=== PATIENT | female | born 1975 | race Two or more races ===

== ENCOUNTER 2025-02-09 09:59 | Inpatient (IN) | payer MEDICAID, OTHER ==
[~2025-02-09] VITALS: Ht 165.1 cm; Wt 78.2 kg
--- NOTE | 2025-02-09 10:31 | ED.PDOC ---
History of Present Illness HPI Comments 49-year-old female brought by paramedics because of redness at the Port-A-Cath site for her drug infusion. Placed in the right chest. She does have a history of breast cancer for which she did use the port for intravenous chemotherapy now currently she is waiting to start her oral chemotherapy. She does have generalized weakness other than the redness of her Port-A-Cath. Denies chest pain nausea vomiting. This redness was 1st noticed a few days ago progressively getting worse. History of diabetes and hyper cholesterol. Denies any other symptoms. Time Seen by MD: 10:11 Reviewed Notes: Nurses Notes, Medications, Allergies Allergies: Coded Allergies: NO KNOWN ALLERGIES (Unverified , 02/09/25) Information Source: Patient, Emergency Med Personnel Mode of Arrival: EMS Severity: Moderate Timing: Days Duration: Since onset Past Medical History PAST MEDICAL HISTORY: DM Surgical History: Denies all surgeries WIRE ANNEALER History: No Pertinent WIRE ANNEALER History Social History Smoker: Non-Smoker Alcohol: Denies ETOH Use Drugs: Denies Drug Use Constitutional: reports: weakness; denies: chills, diaphoresis, fatigue, fever, malaise, sweats, others EENTM: denies: blurred vision, double vision, ear bleeding, ear discharge, ear drainage, ear pain, ear ringing, eye pain, eye redness, hearing loss, mouth pain, mouth swelling, nasal discharge, nose bleeding, nose congestion, nose pain, photophobia, tearing, throat pain, throat swelling, voice changes, others Respiratory: denies: cough, hemoptysis, orthopnea, SOB at rest, shortness of breath, SOB with excertion, stridor, wheezing, others Cardiovascular: denies: chest pain, dizzy spells, diaphoresis, Dyspnea on exertion, edema, irregular heart beat, left arm pain, lightheadedness, palpitations, PND, syncope, others Gastrointestinal: denies: abdomen distended, abdominal pain, blood streaked bowels, constipated, diarrhea, dysphagia, difficulty swallowing, hematemesis, melena, nausea, poor appetite, poor fluid intake, rectal bleeding, rectal pain, vomiting, others Genitourinary: denies: abnormal vagina bleeding, burning, dyspareunia, dysuria, flank pain, frequency, hematuria, incontinence, pain, , vagina discharge, urgency, others Neurological: denies: dizziness, fainting, headache, left sided numbness, left sided weakness, numbness, paresthesia, pre-existing deficit, right sided numbness, right sided weakness, seizure, speech problems, tingling, tremors, weakness, others Musculoskeletal: denies: back pain, gout, joint pain, joint swelling, muscle pain, muscle stiffness, neck pain, others Integumetry: denies: bruises, change in color, change in hair/nails, dryness, laceration, lesions, lumps, rash, wounds, others Allergic/Immunocompromised: denies: Difficulty Healing, Frequent Infections, Hives, Itching, others Hematologic/Lymphatic: denies: anemia, blood clots, easy bleeding, easy bruising, swollen glands, others Endocrine: denies: excessive hunger, excessive sweating, excessive thirst, excessive urination, flushing, intolerance to cold, intolerance to heat, unexplained weight gain, unexplained weight loss, others Psychiatric: denies: anxiety, bipolar disorder, depression, hopeless, panic disorder, schizophrenia, sleepless, suicidal, others Physical Exam General Appearance: Moderate Distress HEENT: Normal ENT Inspection, Pharynx Normal, TMs Normal Neck: Full Range of Motion, Non-Tender, Normal, Normal Inspection Respiratory: Chest Non-Tender, Lungs Clear, No Accessory Muscle Use, No Respiratory Distress, Normal Breath Sounds Cardiovascular: No Edema, No JVD, No Murmur, No Gallop, Normal Peripheral Pulses, Regular Rate/Rhythm Breast Exam: Deferred Gastrointestinal: No Organomegaly, Non Tender, No Pulsatile Mass, Normal Bowel Sounds, Soft Genitalia: Deferred Pelvic: Deferred Rectal: Deferred Extremities: No calf tenderness, Normal capillary refill, Normal inspection, Normal range of motion, Non-tender, No pedal edema Musculoskeletal : Apperance: Normal Neurologic: Alert, fur blower II-XII nml as Tested, No Motor Deficits, Normal Affect, Normal Mood, No Sensory Deficits Cerebellar Function: NOT DONE Reflexes: NOT DONE Skin: Wounds (Right chest) Peripheral Pulses: 3+ Radial (R), 3+ Radial (L) Lymphatic: No Adenopathy Was a procedure done? Was a procedure done?: No Differential Dx Considerations may include: Cellulitis Electrolyte imbalance X-Ray, Labs, Meds, VS Vital Signs Date Time Temp Pulse Resp B/P (MAP) Pulse Ox O2 Delivery O2 Flow Rate FiO2 02/09/25 11:32 80 18 95 Room Air 02/09/25 11:32 97.7 74 18 120/81 (94) 95 97.7 02/09/25 10:10 98.2 96 16 111/72 (85) 94 98.2 02/09/25 10:08 91 Lab Test 02/09/25 11:00 Range/Units White Blood Count 3.5 L 4.4-10.8 10^3/uL Red Blood Count 3.87 L 4.0-5.20 10^6/uL Hemoglobin 12.9 12.2-16.2 g/dL Hematocrit 37.6 36.0-46.0 % Mean Corpuscular Volume 97.1 80.0-100.0 fL Mean Corpuscular Hemoglobin 33.2 H 28.0-32.0 pg Mean Corpuscular Hemoglobin Concent 34.2 32.0-36.0 g/dL Red Cell Distribution Width 20.9 H 11.8-14.3 % Platelet Count 141 140-450 10^3/uL Mean Platelet Volume 6.7 L 6.9-10.8 fL Neutrophils (%) (Auto) 67.0 37.0-80.0 % Lymphocytes (%) (Auto) 20.8 10.0-50.0 % Monocytes (%) (Auto) 10.9 0.0-12.0 % Eosinophils (%) (Auto) 0.8 0.0-7.0 % Basophils (%) (Auto) 0.5 0.0-2.0 % Neutrophils # (Auto) 2.3 1.6-8.6 10 ^3/uL Lymphocytes # (Auto) 0.7 0.4-5.4 10 ^3/uL Monocytes # (Auto) 0.4 0-1.3 10 ^3/uL Eosinophils # (Auto) 0 0-0.8 10 ^3/uL Basophils # (Auto) 0 0-0.2 10 ^3/uL Nucleated Red Blood Cells 0.1 % Sodium Level 140 136-145 mmol/L Potassium Level 3.4 L 3.5-5.1 mmol/L Chloride Level 103 98-107 mmol/L Carbon Dioxide Level 28 20-31 mmol/L Anion Gap 9 5-15 Blood Urea Nitrogen 14 9-23 mg/dL Creatinine 0.59 0.550-1.02 mg/dL Glomerular Filtration Rate Calc 110 >90 mL/min BUN/Creatinine Ratio 23.7 H 10.0-20.0 Serum Glucose 113 H 74-106 mg/dL Calcium Level 9.9 8.7-10.4 mg/dL Patient alert. Redness of the Port-A-Cath. Vitals stable. Answering questions. Abdomen is soft nontender. Cellulitis of the port area. She does have breast cancer. Establish intravenous access. Was given fluids. Was given Zosyn. Explained to the patient. Continue monitoring. [place] [id number] Ph: [phone] DIAGNOSTIC IMAGING Diagnostic Imaging Report : [id number] Signed PATIENT: YURY GANDHI ACCT: [id number] UNIT: [id number] : 1975 LOC: ER ROOM / BED: / AGE / SEX: 49 / F ADM STATUS: REG ER SERVICE 1023 ORDERING PHYSICIAN: TARIQ JOHNSON MD PROCEDURE(s): CXRP - CHEST PORTABLE REASON: sob ORDER NUMBER(s): [id number], ACCESSION NUMBER(s): [id number] CHEST RADIOGRAPH Indication: sob Technique: Single frontal view of the chest was obtained Comparison: None FINDINGS: The cardiac silhouette is unremarkable. The lungs demonstrate perihilar and left basilar airspace opacities. The pulmonary vasculature is prominent. There is no pleural effusion.. There is no pneumothorax. Postsurgical changes projecting over the left chest/ axillary region. IMPRESSION: 1. As above ATED BY: JENS DOZIER MD DICTATED DATE/TIME: 02/09/25 1115 SIGNED BY: JENS DOZIER MD SIGNED DATE/TIME: 02/09/25 1115 CC: Time of 1ST Reevaluation: 10:29 Reevaluation 1ST: Unchanged Patient Education/Counseling: Diagnosis, Treatment, Prognosis Family Education/Counseling: No Family Present Departure 1 Departure Time of Disposition: 10:30 Impression: Primary Impression: Cellulitis Qualified Codes: L03.90 - Cellulitis, unspecified Disposition: ADMITTED INPATIENT Admit to: Med Surg Condition: Guarded Critical Care Note Critical Care Time?: Yes (90 min-critical care time only) Critical care comment: Cellulitis of the chest possibly will need CT. Stability Stability form required: No Heart Score Heart Score: Heart Score Response (Comments) Value History Slightly Suspicious 0 EKG Normal 0 Age 45-64 1 Risk Factors >3 or Hx ASHD 2 Troponin Normal limit 0 Total 3 I personally scribed for TARIQ JOHNSON MD ([email or web address]) on 02/09/25 at 11:40. Electronically submitted by Eric Contreras ([email or web address]). TARIQ JOHNSON MD Feb 09, 2025 10:31
[2025-02-09 11:13] LABS: Basophils # (auto) 0 10 ^3/uL (0-0.2); Basophils % (auto) 0.5 % (0.0-2.0); Eosinophils # (auto) 0 10 ^3/uL (0-0.8); Eosinophils % (auto) 0.8 % (0.0-7.0); Hematocrit 37.6 % (36.0-46.0); Hemoglobin 12.9 g/dL (12.2-16.2); Lymphocytes # (auto) 0.7 10 ^3/uL (0.4-5.4); Lymphocytes % (auto) 20.8 % (10.0-50.0); Mean Corpuscular Hemoglobin 33.2 pg (28.0-32.0); Mean Corpuscular Hgb Conc. 34.2 g/dL (32.0-36.0); Mean Corpuscular Volume 97.1 fL (80.0-100.0); Monocytes # (auto) 0.4 10 ^3/uL (0-1.3); Monocytes % (auto) 10.9 % (0.0-12.0); Neutrophils # (auto) 2.3 10 ^3/uL (1.6-8.6); Nucleated Red Blood Cells % 0.1 %; Platelet Count (auto) 141 10^3/uL (140-450); Red Blood Cells 3.87 10^6/uL (4.0-5.20); Red Cell Distribution Width 20.9 % (11.8-14.3); White Blood Cell 3.5 10^3/uL (4.4-10.8)
--- NOTE | 2025-02-09 11:17 | DVH ---
CHEST RADIOGRAPH Indication: sob Technique: Single frontal view of the chest was obtained Comparison: None FINDINGS: The cardiac silhouette is unremarkable. The lungs demonstrate perihilar and left basilar airspace opa cities. The pulmonary vasculature is prominent. There is no pleural effusion.. There is no pneumothor ax. Postsurgical changes projecting over the left chest/ axillary region. IMPRESSION: 1. As above
[2025-02-09 11:21] LABS: Chloride 103 mmol/L (98-107); Sodium 140 mmol/L (136-145)
[2025-02-09 11:22] LABS: Anion Gap 9 (5-15); Calcium 9.9 mg/dL (8.7-10.4); Carbon Dioxide 28 mmol/L (20-31); Potassium 3.4 mmol/L (3.5-5.1)
[2025-02-09 11:27] LABS: BUN/Creatinine Ratio 23.7 (10.0-20.0); Blood Urea Nitrogen 14 mg/dL (9-23)
[2025-02-09 11:29] LABS: Glucose 113 mg/dL (74-106)
[2025-02-09 12:00] LABS: Urine Bacteria None Seen /hpf (None Seen)
[2025-02-09 12:06] LABS: Urine Blood Negative /uL (Negative); Urine Clarity Clear (Clear); Urine Color Light-Yellow (Yellow); Urine Protein, UAD Negative (Negative); Urine Specific Gravity 1.021 (1.001-1.035); Urine Squamous Epithelial Cell FEW /hpf (<5); Urine Urobilinogen Normal (Negative); Urine WBC 4 /HPF (0-5); Urine pH 5.5 (5.0-9.0)
[2025-02-09 14:56] VITALS: RESP 20; O2SAT 98
[2025-02-09] MEDS ORDERED: NITROGLYCERIN 0.4 MG SL TAB SL PRN (16:45)
[2025-02-09] MEDS ORDERED: DEXTROSE (50%) 50ML SYRG IV PRN (16:45)
[2025-02-09] MEDS ORDERED: VANCOMYCIN PER PHARMACY 0 MG IV SCH (16:45)
[2025-02-09] MEDS ORDERED: MORPHINE SULFATE INJ 2 MG/ml SYRG IV PRN (16:45)
[2025-02-09] MEDS ORDERED: DOCUSATE SOD 100 MG CAP PO PRN (16:45)
[2025-02-09] MEDS ORDERED: ONDANSETRON HCL 4 MG/2 ML VIAL IV PRN (16:45)
[2025-02-09] MEDS: SODIUM CHLORIDE 0.9% 1,000 ML IV ONE ×2 (17:00→21:37)
[2025-02-09] MEDS: ACCU-CHEK COMFORT CURVE STRIP VI SCH (17:00)
--- NOTE | 2025-02-09 17:11 | DVHHP2 ---
History of Present Illness Reason for Visit: Generalized weakness History of Present Illness Shiva Gil is a 49-year-old female with past medical history of hyperlipidemia, diabetes, and breast cancer S/P left mastectomy, who came in for generalized weakness. Patient states she had her port-a-cath removed on Sunday. Over the weekend the site became red, warm, and painful, and she started feeling tired and weak. Today she states yellow and red fluid started draining from the site prompting her to come to the hospital. Patient states she has completed her IV chemo treatment, but continues to take PO chemo treatment. The port-a-cath site is red, swollen, warm, with drainage. Possible abscess building, will place surgical consult for possible I&D of area. Cardiovascular: hyperipidemia Heme/Onc: Cancer (breast) Endocrine: Diabetes Past Surgical History: Cholecystectomy, Other (Left mastectomy) Smoke: No ALCOHOL: none Drugs: None Lives: Alone (she lives with her 12-year-old child) Domestic Violence: Neg Review of Systems Constitutional: No: Fever, Chills, Sweats, Weakness, Malaise, Other Eyes: No: Pain, Vision change, Conjunctivae inflammation, Eyelid inflammation, Other, Redness ENT: No: Ear pain, Ear discharge, Nose pain, Nose discharge, Nose congestion, Mouth pain, Mouth swelling, Throat pain, Throat swelling, Other Respiratory: No: Cough, Dry, Shortness of breath, SOB with excertion, Wheezing, Hemoptysis, Pleuritic Pain, Sputum, Wheezing, Other Cardiovascular: No: Chest Pain, Palpitations, Orthopnea, Paroxysmal Noc. Dyspnea, Edema, Lt Headedness, Other Gastrointestinal: No: Nausea, Vomiting, Abdominal Pain, Diarrhea, Constipation, Melena, Hematochezia, Other Genitourinary: No Dysuria, No Frequency, No Incontinence, No Hematuria, No Retention, No Other Musculoskeletal: other (right chest pain at site of port-a-cath removal); No: neck pain, shoulder pain, arm pain, back pain, hand pain, leg pain, foot pain Skin: Other (redness, and warmth to right chest port-a-cath removal site); No: Rash, Lesions, Jaundice, Bruising Neurological: No: Weakness, Numbness, Incoordination, Change in speech, Confusion, Seizures, Other Allergies: Coded Allergies: NO KNOWN ALLERGIES (Unverified , 02/09/25) Exam Vital Signs Vital Signs Date Time Temp Pulse Resp B/P (MAP) Pulse Ox O2 Delivery O2 Flow Rate FiO2 02/09/25 15:30 98.3 89 20 100/65 (77) 99 98.3 02/09/25 14:56 Room Air* 0 21 General Appearance: Alert, Oriented X3, Cooperative, mild distress HEENT: Atraumatic, PERRLA Respiratory: Clear to auscultation, Normal air movement Cardiovascular: Regular rate, Normal S1, Normal S2 Abdominal: Normal bowel sounds, Soft, No tenderness, No hepatospenomegaly Extremities: No clubbing, No cyanosis, No edema, Normal pulses Skin: No rashes, No breakdown, No significant lesion (redness, and warmth to right chest port-a-cath removal site) Neuro: Normal gait, Normal speech, Strength at 5/5 X4 ext Psych/Mental Status: Mental status NL, Mood NL Labs/Xrays Labs Test 02/09/25 12:00 02/09/25 11:54 02/09/25 11:00 Range/Units Urine Color Light-yellow Yellow Urine Clarity Clear Clear Urine pH 5.5 5.0-9.0 Urine Specific [place] 1.021 1.001-1.035 Urine Protein Negative Negative Urine Ketones Negative Negative Urine Blood Negative Negative /uL Urine Nitrite Negative Negative Urine Bilirubin Negative Negative Urine Urobilinogen Normal Negative mg/dL Urine Leukocyte Esterase 1+ Negative /uL Urine RBC <1 0 - 4 /hpf Urine Microscopic WBC 4 0-5 /HPF Urine Squamous Epithelial Cells Few <5 /hpf Urine Calcium Oxalate Crystals Few None Seen Urine Bacteria None seen None Seen /hpf Urine Glucose Normal Normal mg/dL Lactic Acid Level 1.3 0.4-2.0 mmol/L White Blood Count 3.5 L 4.4-10.8 10^3/uL Red Blood Count 3.87 L 4.0-5.20 10^6/uL Hemoglobin 12.9 12.2-16.2 g/dL Hematocrit 37.6 36.0-46.0 % Mean Corpuscular Volume 97.1 80.0-100.0 fL Mean Corpuscular Hemoglobin 33.2 H 28.0-32.0 pg Mean Corpuscular Hemoglobin Concent 34.2 32.0-36.0 g/dL Red Cell Distribution Width 20.9 H 11.8-14.3 % Platelet Count 141 140-450 10^3/uL Mean Platelet Volume 6.7 L 6.9-10.8 fL Neutrophils (%) (Auto) 67.0 37.0-80.0 % Lymphocytes (%) (Auto) 20.8 10.0-50.0 % Monocytes (%) (Auto) 10.9 0.0-12.0 % Eosinophils (%) (Auto) 0.8 0.0-7.0 % Basophils (%) (Auto) 0.5 0.0-2.0 % Neutrophils # (Auto) 2.3 1.6-8.6 10 ^3/uL Lymphocytes # (Auto) 0.7 0.4-5.4 10 ^3/uL Monocytes # (Auto) 0.4 0-1.3 10 ^3/uL Eosinophils # (Auto) 0 0-0.8 10 ^3/uL Basophils # (Auto) 0 0-0.2 10 ^3/uL Nucleated Red Blood Cells 0.1 % Sodium Level 140 136-145 mmol/L Potassium Level 3.4 L 3.5-5.1 mmol/L Chloride Level 103 98-107 mmol/L Carbon Dioxide Level 28 20-31 mmol/L Anion Gap 9 5-15 Blood Urea Nitrogen 14 9-23 mg/dL Creatinine 0.59 0.550-1.02 mg/dL Glomerular Filtration Rate Calc 110 >90 mL/min BUN/Creatinine Ratio 23.7 H 10.0-20.0 Serum Glucose 113 H 74-106 mg/dL Calcium Level 9.9 8.7-10.4 mg/dL CHEST RADIOGRAPH FINDINGS: The cardiac silhouette is unremarkable. The lungs demonstrate perihilar and left basilar airspace opacities. The pulmonary vasculature is prominent. There is no pleural effusion.. There is no pneumothorax. Postsurgical changes projecting over the left chest/ axillary region. IMPRESSION: 1. As above Assessment/Plan Assessment/Plan Assessment: Infection due to Port-A-Cath, Breast cancer, Diabetes, Hyperlipidemia, Plan: Admit to Med-Surg, Surgical consult, Wound care consult, IV antibiotics, IV hydration, Blood cultures, Accu checks Q AC&HS with sliding scale, Home medications reconciled Plan discussed with: Patient My Orders Orders - SHEA CAMPA IT SUPPORT TECHNICIAN Procedure Category Date Status Time Admit ADMIT 02/09/25 Transmitted 16:38 Code Status CODE 02/09/25 Transmitted 16:38 2 Gm Sodium Diet DIET 02/09/25 Transmitted Dinner Sodium Chloride Lock PHA 02/09/25 Transmitted (Saline Lock Ns) 22:00 Hydrocodone-Acet PHA 02/09/25 Transmitted 5/325mg Tab ([place] 16:45 Ondansetron Hcl PHA 02/09/25 Transmitted (Zofran) 16:45 Docusate Sodium PHA 02/09/25 Transmitted Capsule (Colace 16:45 Complete Blood Count LAB 02/10/25 Verified 04:00 Comprehensive LAB 02/10/25 Verified Metabolic Panel 04:00 Condition: Serious MERRITT 02/09/25 Transmitted 16:38 Acetaminophen Tablet PHA 02/09/25 Transmitted (Tylenol Tablet) 16:45 Nitroglycerin PHA 02/09/25 Transmitted Sublingual (Ntrostat 16:45 Morphine Sulfate PHA 02/09/25 Transmitted Injection 16:45 Stat Ekg For Chest MERRITT 02/09/25 Transmitted Pain 16:38 Notify Md Of Changes MERRITT 02/09/25 Transmitted From Base 16:38 Sponge Diver For MERRITT 02/09/25 Transmitted 24 Hours 16:38 Emergency Dysrhythmia MERRITT 02/09/25 Transmitted Protocol 16:38 Rhythm Strips Once MERRITT 02/09/25 Transmitted Every Shift 16:38 Oxygen By Nasal RT 02/09/25 Transmitted Cannula 16:38 Glucose Blood PHA 02/09/25 Transmitted (Accu-Chek Comfort 17:00 Bedtime Insulin Scale PHA 02/09/25 Transmitted 22:00 Moderate Insulin Ss PHA 02/09/25 Transmitted 17:00 Dextrose 50% Syringe PHA 02/09/25 Transmitted 16:45 Date of Service: Feb 09, 2025 Billing Provider: SHEA CAMPA Common Visit Codes: [id number] INP/OBS CARE (MOD) SHEA CAMPA Feb 09, 2025 17:11
[2025-02-09] MEDS ORDERED: CAPE500T PO (17:55)
[2025-02-09] MEDS ORDERED: ROSU20TA56 PO (17:55)
[2025-02-09] MEDS ORDERED: LEVO112T4 PO (17:55)
[2025-02-09] MEDS ORDERED: OMEP20TA PO (17:55)
[2025-02-09] MEDS ORDERED: OYST1TAB OR (17:55)
[2025-02-09] MEDS: cefTRIAXone 1GM/50ML D5W 50 ML IV ONE (18:22)
[2025-02-09] MEDS: VANCOMYCIN 1GM/200ML PM 200 ML IV ONE (18:48)
[2025-02-09] MEDS: InsuLIN REG 1unit/0.01ml Soln (100units/ml) SC SCH ×2 (18:51→22:00)
[2025-02-09 22:00] VITALS: BP 137/84; PULSE 84; RESP 20; TEMP 97.4; O2SAT 100
[2025-02-09] MEDS: SODIUM CHLOR 0.9% PF (SALINE LOCK) 10ML VIAL/SYR IV SCH (22:00)
[2025-02-09] MEDS: ATORVASTATIN 20 MG TAB PO SCH (22:32)
[2025-02-10] VITALS (8 sets, daily range): BP systolic 95–133; BP diastolic 56–74; PULSE 83–87; RESP 17–20; TEMP 97.7–98.6; O2SAT 96–99
[2025-02-10] MEDS: HYDROcodone-ACET 5/325MG TAB PO PRN (05:34)
[2025-02-10] MEDS: LEVOTHYROXINE SODIUM 112 MCG TAB PO SCH (06:01)
[2025-02-10] MEDS: OMEPRAZOLE-SOD BICARB 20 MG POWDER PO SCH (07:00)
[2025-02-10 07:10] LABS: Basophils # (auto) 0 10 ^3/uL (0-0.2); Basophils % (auto) 0.1 % (0.0-2.0); Eosinophils # (auto) 0 10 ^3/uL (0-0.8); Eosinophils % (auto) 1.4 % (0.0-7.0); Hematocrit 34.6 % (36.0-46.0); Hemoglobin 11.9 g/dL (12.2-16.2); Lymphocytes # (auto) 0.6 10 ^3/uL (0.4-5.4); Mean Corpuscular Hemoglobin 34.1 pg (28.0-32.0); Mean Corpuscular Hgb Conc. 34.3 g/dL (32.0-36.0); Mean Corpuscular Volume 99.3 fL (80.0-100.0); Monocytes # (auto) 0.4 10 ^3/uL (0-1.3); Monocytes % (auto) 14.9 % (0.0-12.0); Neutrophils # (auto) 1.8 10 ^3/uL (1.6-8.6); Neutrophils % (auto) 61.6 % (37.0-80.0); Nucleated Red Blood Cells % 0.2 %; Platelet Count (auto) 122 10^3/uL (140-450); Red Blood Cells 3.49 10^6/uL (4.0-5.20); Red Cell Distribution Width 20.9 % (11.8-14.3); White Blood Cell 2.9 10^3/uL (4.4-10.8)
[2025-02-10 07:18] LABS: Albumin 4.2 g/dL (3.2-4.8); Anion Gap 11 (5-15); BUN/Creatinine Ratio 20.8 (10.0-20.0); Blood Urea Nitrogen 11 mg/dL (9-23); Calcium 9.1 mg/dL (8.7-10.4); Carbon Dioxide 22 mmol/L (20-31); Chloride 106 mmol/L (98-107); Potassium 3.9 mmol/L (3.5-5.1); Sodium 139 mmol/L (136-145); Total Protein 6.1 g/dL (5.7-8.2)
[2025-02-10 07:19] LABS: Aspartate Aminotransferase 29 U/L (13-40); Bilirubin, Total 0.7 mg/dL (0.2-1.0)
[2025-02-10 07:22] LABS: Alanine Aminotransferase 43 U/L (7-40); Alkaline Phosphatase 45 U/L (46-116); Glucose 114 mg/dL (74-106)
[2025-02-10] MEDS: cefTRIAXone 1GM/50ML D5W 50 ML IV SCH (08:33)
[2025-02-10] MEDS: OYSTER SHELL PO SCH (09:08)
[2025-02-10] MEDS: VANCOMYCIN 1GM/200ML PM 200 ML IV SCH (11:02)
--- NOTE | 2025-02-10 11:55 | DVHPN2 ---
Subjective 79-year-old female with a history of breast cancer who underwent chemotherapy through a Port-A-Cath catheter at the [facility] and she just had it removed there 4 days ago, 2 days later she started having swelling in the location of the catheter and some discharge of dark serosanguineous fluid The location became swollen and therefore she came here Changes from previous H/P or p: Changes Eyes: No Pain, No Vision change, No Conjunctivae inflammation, No Eyelid inflammation, No Other, No Redness ENT: No Ear pain, No Ear discharge, No Nose pain, No Nose discharge, No Nose congestion, No Mouth pain, No Mouth swelling, No Throat pain, No Throat swelling, No Other Cardiovascular: No Chest Pain, No Palpitations, No Orthopnea, No Paroxysmal Noc. Dyspnea, No Edema, No Lt Headedness, No Other Respiratory: No Cough, No Dry, No Shortness of breath, No SOB with excertion, No Wheezing, No Hemoptysis, No Pleuritic Pain, No Sputum, No Other Gastrointestinal: No Nausea, No Vomiting, No Abdominal Pain, No Diarrhea, No Constipation, No Melena, No Hematochezia, No Other Genitourinary: No Dysuria, No Frequency, No Incontinence, No Hematuria, No Retention, No Other Musculoskeletal: other (right chest pain at site of port-a-cath removal); No neck pain, No shoulder pain, No arm pain, No back pain, No hand pain, No leg pain, No foot pain Skin: No Rash, No Lesions, No Jaundice, No Bruising; Other (redness, and warmth to right chest port-a-cath removal site) Objective Vitals Vital Signs Date Time Temp Pulse Resp B/P (MAP) Pulse Ox O2 Delivery O2 Flow Rate FiO2 02/10/25 09:00 97.7 83 17 105/58 (74) 98 97.7 02/10/25 08:00 Room Air* 0 21 Intake/Output Intake and Output 02/10/25 07:00 Intake Total 350 ml Balance 350 ml Intake Oral 200 ml IV Total 150 ml # Voids 1 General Appearance: Alert, Oriented X3, Cooperative, No acute distress Lungs: Clear to auscultation, Normal air movement Cardiovascular: Regular rate, Normal S1, Normal S2 Abdomen: Normal bowel sounds, Soft, No tenderness Extremities: No edema Medications Current Medications Medications Dose Ordered Sig/Snow Route Start Time Stop Time Status Last Admin Dose Admin Sodium Chloride 10 ml Q8HR IV 02/09/25 22:00 02/10/25 05:35 10 ML Acetaminophen/ Hydrocodone Bitart 1 tab Q4HP PRN PO 02/09/25 16:45 02/10/25 05:34 1 TAB Ondansetron HCl 4 mg Q4HP PRN IV 02/09/25 16:45 Docusate Sodium 100 mg BIDPRN PRN PO 02/09/25 16:45 Acetaminophen 650 mg Q6HP PRN PO 02/09/25 16:45 Nitroglycerin 0.4 mg Q5MINP PRN SL 02/09/25 16:45 Morphine Sulfate 2 mg Q30M PRN IV 02/09/25 16:45 Diagnostic Test (Pha) 1 strip ACHS 02/09/25 17:00 02/10/25 06:02 1 STRIP Insulin Human Regular HS SC 02/09/25 22:00 Insulin Human Regular AC SC 02/09/25 17:00 02/09/25 18:51 2 UNITS Dextrose 50 ml UD PRN IV 02/09/25 16:45 Vancomycin HCl 0 ml @ 0 mls/hr UD IV 02/09/25 16:45 Ceftriaxone Sodium 50 ml @ 100 mls/hr DAILY@09 IV 02/10/25 09:00 02/10/25 08:33 100 MLS/HR Levothyroxine Sodium 112 mcg QAM PO 02/10/25 07:00 02/10/25 06:01 112 MCG Patient Own Medication 1,500 mg BID PO 02/09/25 22:00 Omeprazole 40 mg DAILY PO 02/10/25 07:00 Patient Own Medication 500 mg DAILY PO 02/10/25 10:00 Atorvastatin Calcium 40 mg HS PO 02/09/25 22:00 02/09/25 22:32 40 MG Vancomycin HCl 200 ml @ 200 mls/hr Q12H IV 02/10/25 10:00 02/10/25 11:02 200 MLS/HR Laboratory Results Laboratory Tests 02/10/25 06:14 Chemistry Test 02/10/25 06:14 Albumin 4.2 g/dL (3.2-4.8) Calcium Level 9.1 mg/dL (8.7-10.4) Total Protein 6.1 g/dL (5.7-8.2) LFT Test 02/10/25 06:14 Alanine Aminotransferase (ALT) 43 U/L (7-40) H Alkaline Phosphatase 45 U/L (46-116) L Aspartate Amino Transferase (AST) 29 U/L (13-40) Total Bilirubin 0.7 mg/dL (0.2-1.0) Urinalysis Test 02/09/25 12:00 Urine Color Light-yellow (Yellow) Urine Clarity Clear (Clear) Urine pH 5.5 (5.0-9.0) Urine Specific [place] 1.021 (1.001-1.035) Urine Protein Negative (Negative) Urine Ketones Negative (Negative) Urine Blood Negative /uL (Negative) Urine Nitrite Negative (Negative) Urine Bilirubin Negative (Negative) Urine Urobilinogen Normal mg/dL (Negative) Urine Leukocyte Esterase 1+ /uL (Negative) Urine RBC <1 /hpf (0 - 4) Urine Microscopic WBC 4 /HPF (0-5) Urine Squamous Epithelial Cells Few /hpf (<5) Urine Calcium Oxalate Crystals Few (None Seen) Urine Bacteria None seen /hpf (None Seen) Urine Glucose Normal mg/dL (Normal) Assessment/Plan Assessment/Plan Port-A-Cath site infection, rule out abscess Status post removal of the Port-A-Cath catheter 4 days ago Left breast cancer status post chemotherapy, finished Mixed hyperlipidemia GERD Hypothyroidism Rule out sepsis The patient denies diabetes or hypertension Plan Wound culture done and sent to the lab Continue IV antibiotics Rocephin and vancomycin Blood culture is pending Surgical consult Resume the home medications Full code Advance directives discussed for 21 minutes Plan discussed with: Patient My Orders Orders - VIJI GRACE MD Procedure Category Date Status Time Wound Culture W/ Gs ISSAC 02/10/25 Logged 11:39 Date of Service: Feb 10, 2025 Billing Provider: VIJI GRACE MD Common Visit Codes: [id number] INP/OBS CARE(HIGH) Secondary Visit Codes: 50009-[id number] CARE PLAN 30 MINUTES VIJI GRACE MD Feb 10, 2025 11:55
--- NOTE | 2025-02-10 12:34 | ECG ---
[facility] Test Date: 2025-02-09 Test Time: 10:08:08 Pat Name: YURY GANDHI Department: ED Room: 0284 A Gender: F Public Safety Telecommunicator: ADRIANA : 1975 Requested By: TARIQ JOHNSON Order Number: [id number] Reading MD: Colby Feldman Measurements Intervals [place] Rate: 91 P: 73 ND: 149 QRS: 37 QRSD: 75 T: 63 QT: 451 QTc: 556 Interpretive Statements Sinus rhythm Low voltage, precordial leads Abnormal R-wave progression, early transition Borderline T abnormalities, anterior leads Prolonged QT interval Electronically Signed On 02-11-2025 14:51:35 PDT by Colby Feldman Please click the below link to view image of tracing.
--- NOTE | 2025-02-10 13:41 | DVHINCON2 ---
Consultation - Surgical Date Seen: Feb 10, 2025 Referring Physician Reason for Consultation surgical site infection, abscess History of Present Illness History of Present Illness 49F w known h/o breast ca treated at [facility] who previously had a R chest port-a-cath that was removed at [facility] on this previous Sunday. The site developed some warmth to touch and erythema, and was draining dark serosang fluid so she was brought to er at [facility], No f/c, n/v, sob, castro, diarrhea. Past Medical/Surgical History Past Medical/Surgical History breast ca, immunosuppressive state insertion of portacath Family and Social History Family and Social History no tob, etoh, drugs family noncontributory Allergies and medications Allergies: Coded Allergies: NO KNOWN ALLERGIES (Unverified , 02/09/25) Home Meds Reported Medications Oyster Shell (OYSTER SHELL CALCIUM 500) 500 Mg Tab, 500 MG OR DAILY, TAB 02/09/25 Omeprazole (Gnp Omeprazole) 20 Mg Tab, 40 MG PO DAILY, TAB 02/09/25 Capecitabine (Xeloda) 500 Mg Tab, 1500 MG PO BID, TAB 02/09/25 Levothyroxine Sodium (Levothyroxine Sodium) 112 Mcg Tab, 1 TAB PO DAILY, #30 TAB 5 Refills 02/09/25 Rosuvastatin Calcium (Rosuvastatin Calcium) 20 Mg Tab, 20 MG PO HS, TAB 02/09/25 Review of systems Review of Systems: HEENT:Normal, CVS:Normal, RESPIRATORY:Normal, GI:Normal, :Normal, MSK:Normal, NEURO:Normal Examination Vital signs Vital Signs Date Time Temp Pulse Resp B/P (MAP) Pulse Ox O2 Delivery O2 Flow Rate FiO2 02/10/25 09:00 97.7 83 17 105/58 (74) 98 97.7 02/10/25 08:00 Room Air* 0 21 Medications Current Medications Medications (Trade) Dose Ordered Sig/Snow Route PRN Reason Start Time Stop Time Status Last Admin Sodium Chloride (Saline Lock Ns) 10 ml Q8HR IV 02/09/25 22:00 02/10/25 05:35 Acetaminophen/ Hydrocodone Bitart ([place] 5/325MG Tab) 1 tab Q4HP PRN PO MODERATE PAIN (4-6 PAIN SCALE) 02/09/25 16:45 02/10/25 05:34 Ondansetron HCl (Zofran) 4 mg Q4HP PRN IV NAUSEA / VOMITING 02/09/25 16:45 Docusate Sodium (Colace Capsule) 100 mg BIDPRN PRN PO FOR CONSTIPATION 02/09/25 16:45 Acetaminophen (Tylenol Tablet) 650 mg Q6HP PRN PO PAIN SCALE 1-3 OR TEMP>100.4 02/09/25 16:45 Nitroglycerin (Ntrostat Sublingual) 0.4 mg Q5MINP PRN SL FOR CHEST PAIN 02/09/25 16:45 Morphine Sulfate 2 mg Q30M PRN IV FOR CHEST PAIN 02/09/25 16:45 Diagnostic Test (Pha) (Accu-Chek Comfort Curve T) 1 strip ACHS 02/09/25 17:00 02/10/25 11:56 DC 02/10/25 06:02 Insulin Human Regular (InsuLIN R) HS SC 02/09/25 22:00 02/10/25 11:56 DC Insulin Human Regular (InsuLIN R) AC SC 02/09/25 17:00 02/10/25 11:56 DC 02/09/25 18:51 Dextrose 50 ml UD PRN IV Blood Sugar LESS THAN 60 02/09/25 16:45 Vancomycin HCl 0 ml @ 0 mls/hr UD IV 02/09/25 16:45 Ceftriaxone Sodium 50 ml @ 100 mls/hr DAILY@09 IV 02/10/25 09:00 02/10/25 08:33 Levothyroxine Sodium (Synthroid Tablet) 112 mcg QAM PO 02/10/25 07:00 02/10/25 06:01 Patient Own Medication 1,500 mg BID PO 02/09/25 22:00 Omeprazole (Omeprazole/ Sodium Bicarbo 20-1680 Mg) 40 mg DAILY PO 02/10/25 07:00 Patient Own Medication 500 mg DAILY PO 02/10/25 10:00 Atorvastatin Calcium (Lipitor) 40 mg HS PO 02/09/25 22:00 02/09/25 22:32 Vancomycin HCl 200 ml @ 200 mls/hr Q12H IV 02/10/25 10:00 02/10/25 11:02 Laboratory Labs Test 02/10/25 12:01 02/10/25 06:14 02/09/25 12:00 02/09/25 11:54 Range/Units POC Glucose 80 70-106 mg/dl White Blood Count 2.9 L 4.4-10.8 10^3/uL Red Blood Count 3.49 L 4.0-5.20 10^6/uL Hemoglobin 11.9 L 12.2-16.2 g/dL Hematocrit 34.6 L 36.0-46.0 % Mean Corpuscular Volume 99.3 80.0-100.0 fL Mean Corpuscular Hemoglobin 34.1 H 28.0-32.0 pg Mean Corpuscular Hemoglobin Concent 34.3 32.0-36.0 g/dL Red Cell Distribution Width 20.9 H 11.8-14.3 % Platelet Count 122 L 140-450 10^3/uL Mean Platelet Volume 7.0 6.9-10.8 fL Neutrophils (%) (Auto) 61.6 37.0-80.0 % Lymphocytes (%) (Auto) 22.0 10.0-50.0 % Monocytes (%) (Auto) 14.9 H 0.0-12.0 % Eosinophils (%) (Auto) 1.4 0.0-7.0 % Basophils (%) (Auto) 0.1 0.0-2.0 % Neutrophils # (Auto) 1.8 1.6-8.6 10 ^3/uL Lymphocytes # (Auto) 0.6 0.4-5.4 10 ^3/uL Monocytes # (Auto) 0.4 0-1.3 10 ^3/uL Eosinophils # (Auto) 0 0-0.8 10 ^3/uL Basophils # (Auto) 0 0-0.2 10 ^3/uL Nucleated Red Blood Cells 0.2 % Sodium Level 139 136-145 mmol/L Potassium Level 3.9 3.5-5.1 mmol/L Chloride Level 106 98-107 mmol/L Carbon Dioxide Level 22 20-31 mmol/L Anion Gap 11 5-15 Blood Urea Nitrogen 11 9-23 mg/dL Creatinine 0.53 L 0.550-1.02 mg/dL Glomerular Filtration Rate Calc 113 >90 mL/min BUN/Creatinine Ratio 20.8 H 10.0-20.0 Serum Glucose 114 H 74-106 mg/dL Calcium Level 9.1 8.7-10.4 mg/dL Total Bilirubin 0.7 0.2-1.0 mg/dL Aspartate Amino Transferase (AST) 29 13-40 U/L Alanine Aminotransferase (ALT) 43 H 7-40 U/L Alkaline Phosphatase 45 L 46-116 U/L Total Protein 6.1 5.7-8.2 g/dL Albumin 4.2 3.2-4.8 g/dL Random Vancomycin Level 6.7 5-10 ug/mL Urine Color Light-yellow Yellow Urine Clarity Clear Clear Urine pH 5.5 5.0-9.0 Urine Specific [place] 1.021 1.001-1.035 Urine Protein Negative Negative Urine Ketones Negative Negative Urine Blood Negative Negative /uL Urine Nitrite Negative Negative Urine Bilirubin Negative Negative Urine Urobilinogen Normal Negative mg/dL Urine Leukocyte Esterase 1+ Negative /uL Urine RBC <1 0 - 4 /hpf Urine Microscopic WBC 4 0-5 /HPF Urine Squamous Epithelial Cells Few <5 /hpf Urine Calcium Oxalate Crystals Few None Seen Urine Bacteria None seen None Seen /hpf Urine Glucose Normal Normal mg/dL Lactic Acid Level 1.3 0.4-2.0 mmol/L Microbiology Date/Time Source Procedure Growth Status 02/09/25 11:54 Blood Blood Culture - Preliminary NO GROWTH AFTER 24 HOURS OF INCUBATION. Resulted Examination: GENERAL:Normal, HEENT:Normal, NECK:Normal, LUNGS:Normal, CVS:Normal, ABDOMEN:Normal, MSK:Normal, SKIN:Abnormal (r upper chest transverse incision w dermabond, periincisional erythema w central fluctance, expressible purulent dark s/s fluid), NEURO:Normal, :Normal Problem List/Assessment/Plan Problems: (1) Immunocompromised (2) Immunocompromised state due to drug therapy (3) Immunocompromised status associated with infection (4) Superficial incisional surgical site infection (5) Abscess after procedure (6) Cellulitis (7) Infection due to Port-A-Cath Assessment and Plan 49f w known breast ca s/p systemic chemo recently completed and subsequental portacath removal at [facility] on 02/07 brought to ER w SSI breast ca immunocompromised state superfiscal surgical site infection abscess infected hematoma suspect pt developed a hematoma after incision closure following recent procedure and was unable to adequately drain due to dermabond skin closure expressed fluid appears dark chocolate brown grossly suggestive of infected hematoma will perform bedside I&D, see separate procedure note explained if no improved following bedside procedure pt may need more extensive I&D in OR cont ABX VTE ppx Plan discussed with Plan discussed with: Patient, Other (sister) Visit Coding Surgery Date of Service if different f: Feb 10, 2025 Billing Provider: DIANNA BLAIR MD Surgery Visit Codes: [id number] - INP CONSULT <55 MIN DIANNA BLAIR MD Feb 10, 2025 13:41
--- NOTE | 2025-02-10 13:50 | DVHNC2 ---
Incision and Drainage Incision and Drainage: Abscess Location R upper chest incision which was site of removed PortaCath last Sunday ar [facility] surround skin cleaned Dermabond removed using gentle rubbing w vasoline guaze wound expressed purulent-serosang fluid through small open in previous incision line fluid swabbed and sent for c&s incisional opening widened with cotton tip and additional fluid expressed 1/4 inch strip packing placed through incisional opening and covered with sterile gauze padded bandage dressing count verified times 2 no procedural complications, patient remained stable patient and pts sister updated Anesthetic: Other (none) Preparation: Wound overhead cleaner Incision and Wound: Pus, Blood (infected retained hematoma) Informed consent obtained: Yes (verbal with bedside rn present) Risks/benefits/alt described: Yes Date of Service: Feb 10, 2025 Billing Provider: DIANNA BLAIR MD Cardiology Common Codes: PROCEDURE ONLY (bedside incision and drainage of right upper chest wound ) DIANNA BLAIR MD Feb 10, 2025 13:50
[2025-02-10] MEDS: PANTOPRAZOLE 40 MG TAB PO SCH (18:06)
[2025-02-11] VITALS (8 sets, daily range): BP systolic 93–105; BP diastolic 62–71; PULSE 74–85; RESP 15–20; TEMP 97.9–98.6; O2SAT 94–100
[2025-02-11 07:02] LABS: Albumin 4.6 g/dL (3.2-4.8); Alkaline Phosphatase 50 U/L (46-116); Anion Gap 11 (5-15); Aspartate Aminotransferase 24 U/L (13-40); BUN/Creatinine Ratio 23.2 (10.0-20.0); Basophils # (auto) 0 10 ^3/uL (0-0.2); Basophils % (auto) 0.2 % (0.0-2.0); Blood Urea Nitrogen 13 mg/dL (9-23); Calcium 9.8 mg/dL (8.7-10.4); Carbon Dioxide 25 mmol/L (20-31); Chloride 104 mmol/L (98-107); Eosinophils # (auto) 0 10 ^3/uL (0-0.8); Eosinophils % (auto) 1.7 % (0.0-7.0); Hematocrit 35.4 % (36.0-46.0); Hemoglobin 12.3 g/dL (12.2-16.2); Lymphocytes # (auto) 0.7 10 ^3/uL (0.4-5.4); Lymphocytes % (auto) 30.8 % (10.0-50.0); Magnesium 2.1 mg/dL (1.6-2.6); Mean Corpuscular Hemoglobin 33.8 pg (28.0-32.0); Mean Corpuscular Hgb Conc. 34.7 g/dL (32.0-36.0); Mean Corpuscular Volume 97.5 fL (80.0-100.0); Monocytes # (auto) 0.3 10 ^3/uL (0-1.3); Monocytes % (auto) 11.8 % (0.0-12.0); Neutrophils # (auto) 1.3 10 ^3/uL (1.6-8.6); Neutrophils % (auto) 55.5 % (37.0-80.0); Nucleated Red Blood Cells % 0.1 %; Platelet Count (auto) 134 10^3/uL (140-450); Potassium 3.9 mmol/L (3.5-5.1); Red Blood Cells 3.63 10^6/uL (4.0-5.20); Red Cell Distribution Width 20.7 % (11.8-14.3); Sodium 140 mmol/L (136-145); Total Protein 7.1 g/dL (5.7-8.2); White Blood Cell 2.4 10^3/uL (4.4-10.8)
[2025-02-11 07:03] LABS: Bilirubin, Total 0.7 mg/dL (0.2-1.0)
[2025-02-11 07:08] LABS: Alanine Aminotransferase 43 U/L (7-40); Glucose 119 mg/dL (74-106)
[2025-02-11] MEDS: ACETAMINOPHEN 325 MG TAB PO PRN (10:30)
--- NOTE | 2025-02-11 15:05 | DVHPN2 ---
Subjective Date Seen: Feb 11, 2025 Post op day Post op day: 1 General: Normal HNT: Normal Cardiovascular: Normal Respiratory: Normal Gastrointestinal: Normal Genitourinary: Normal Musculoskeletal: Normal Neurological: Normal Objective Vitals Vital Sign Date Time Temp Pulse Resp B/P (MAP) Pulse Ox O2 Delivery O2 Flow Rate FiO2 02/11/25 13:00 97.9 78 20 98/63 (75) 98 97.9 02/11/25 08:00 Room Air* 0 21 Total Intake and Output 02/10/25 02/10/25 02/11/25 15:00 23:00 07:00 Intake Total 250 ml 1400 ml 300 ml Balance 250 ml 1400 ml 300 ml Medications Current Medications Medications Dose Ordered Sig/Snow Route Start Time Stop Time Status Last Admin Dose Admin Sodium Chloride 10 ml Q8HR IV 02/09/25 22:00 02/11/25 07:07 10 ML Acetaminophen/ Hydrocodone Bitart 1 tab Q4HP PRN PO 02/09/25 16:45 02/11/25 01:31 1 TAB Ondansetron HCl 4 mg Q4HP PRN IV 02/09/25 16:45 Docusate Sodium 100 mg BIDPRN PRN PO 02/09/25 16:45 Acetaminophen 650 mg Q6HP PRN PO 02/09/25 16:45 02/11/25 10:30 650 MG Nitroglycerin 0.4 mg Q5MINP PRN SL 02/09/25 16:45 Morphine Sulfate 2 mg Q30M PRN IV 02/09/25 16:45 Dextrose 50 ml UD PRN IV 02/09/25 16:45 Vancomycin HCl 0 ml @ 0 mls/hr UD IV 02/09/25 16:45 Ceftriaxone Sodium 50 ml @ 100 mls/hr DAILY@09 IV 02/10/25 09:00 02/11/25 08:52 100 MLS/HR Levothyroxine Sodium 112 mcg QAM PO 02/10/25 07:00 02/11/25 07:06 112 MCG Patient Own Medication 1,500 mg BID PO 02/09/25 22:00 Atorvastatin Calcium 40 mg HS PO 02/09/25 22:00 02/10/25 22:45 40 MG Vancomycin HCl 200 ml @ 200 mls/hr Q12H IV 02/10/25 10:00 02/11/25 10:05 200 MLS/HR Pantoprazole Sodium 40 mg DAILY PO 02/10/25 18:00 02/11/25 09:23 40 MG Patient Own Medication 500 mg DAILY PO 02/12/25 10:00 General: Normal Head/Eyes: Normal ENT: Normal Neck: Normal Lungs: Normal Cardiovascular: Normal, Regular rate and rhythm Abdominal: Normal, Soft Musculoskeletal: Normal Extremities: Normal Skin: Normal Neurological: Normal Labs and Microbiology Laboratory Tests 02/11/25 06:16 Test 02/11/25 06:16 Range/Units Serum Glucose 119 H 74-106 mg/dL Ass/Plan Problems(with codes): (1) Infection due to Port-A-Cath Assessment/Plan wound clean, no drainage no erythema no complaint of pain Plan: wash area daily pat dry leave wound open to air Plan discussed with patient, Dr. Hernadez Visit Coding Surgery Date of Service if different f: Feb 11, 2025 Billing Provider: HEIDI HERNADEZ MD Surgery Visit Codes: [id number] INP/OBS CARE(HIGH) ROSS CASTELLANOS HAND I BLOCKER Feb 11, 2025 15:05
--- NOTE | 2025-02-11 20:08 | DVHPN2 ---
Subjective 79-year-old female with a history of breast cancer who underwent chemotherapy through a Port-A-Cath catheter at the [facility] and she just had it removed there 4 days ago, 2 days later she started having swelling in the location of the catheter and some discharge of dark serosanguineous fluid The location became swollen and therefore she came here Changes from previous H/P or p: Changes Eyes: No Pain, No Vision change, No Conjunctivae inflammation, No Eyelid inflammation, No Other, No Redness ENT: No Ear pain, No Ear discharge, No Nose pain, No Nose discharge, No Nose congestion, No Mouth pain, No Mouth swelling, No Throat pain, No Throat swelling, No Other Cardiovascular: No Chest Pain, No Palpitations, No Orthopnea, No Paroxysmal Noc. Dyspnea, No Edema, No Lt Headedness, No Other Respiratory: No Cough, No Dry, No Shortness of breath, No SOB with excertion, No Wheezing, No Hemoptysis, No Pleuritic Pain, No Sputum, No Other Gastrointestinal: No Nausea, No Vomiting, No Abdominal Pain, No Diarrhea, No Constipation, No Melena, No Hematochezia, No Other Genitourinary: No Dysuria, No Frequency, No Incontinence, No Hematuria, No Retention, No Other Musculoskeletal: other (right chest pain at site of port-a-cath removal); No neck pain, No shoulder pain, No arm pain, No back pain, No hand pain, No leg pain, No foot pain Skin: No Rash, No Lesions, No Jaundice, No Bruising; Other (redness, and warmth to right chest port-a-cath removal site) Objective Vitals Vital Signs Date Time Temp Pulse Resp B/P (MAP) Pulse Ox O2 Delivery O2 Flow Rate FiO2 02/11/25 17:00 97.9 74 18 101/65 (77) 97 97.9 02/11/25 08:00 Room Air* 0 21 Intake/Output Intake and Output 02/11/25 07:00 Intake Total 1950 ml Balance 1950 ml Intake Oral 1700 ml IV Total 250 ml # Voids 5 # Bowel Movements 1 General Appearance: Alert, Oriented X3, Cooperative, No acute distress Lungs: Clear to auscultation, Normal air movement Cardiovascular: Regular rate, Normal S1, Normal S2 Abdomen: Normal bowel sounds, Soft, No tenderness Extremities: No edema Medications Current Medications Medications Dose Ordered Sig/Snow Route Start Time Stop Time Status Last Admin Dose Admin Sodium Chloride 10 ml Q8HR IV 02/09/25 22:00 02/11/25 14:00 10 ML Acetaminophen/ Hydrocodone Bitart 1 tab Q4HP PRN PO 02/09/25 16:45 02/11/25 01:31 1 TAB Ondansetron HCl 4 mg Q4HP PRN IV 02/09/25 16:45 Docusate Sodium 100 mg BIDPRN PRN PO 02/09/25 16:45 Acetaminophen 650 mg Q6HP PRN PO 02/09/25 16:45 02/11/25 17:53 650 MG Nitroglycerin 0.4 mg Q5MINP PRN SL 02/09/25 16:45 Morphine Sulfate 2 mg Q30M PRN IV 02/09/25 16:45 Dextrose 50 ml UD PRN IV 02/09/25 16:45 Vancomycin HCl 0 ml @ 0 mls/hr UD IV 02/09/25 16:45 Ceftriaxone Sodium 50 ml @ 100 mls/hr DAILY@09 IV 02/10/25 09:00 02/11/25 08:52 100 MLS/HR Levothyroxine Sodium 112 mcg QAM PO 02/10/25 07:00 02/11/25 07:06 112 MCG Patient Own Medication 1,500 mg BID PO 02/09/25 22:00 Atorvastatin Calcium 40 mg HS PO 02/09/25 22:00 02/10/25 22:45 40 MG Vancomycin HCl 200 ml @ 200 mls/hr Q12H IV 02/10/25 10:00 02/11/25 10:05 200 MLS/HR Pantoprazole Sodium 40 mg DAILY PO 02/10/25 18:00 02/11/25 09:23 40 MG Patient Own Medication 500 mg DAILY PO 02/12/25 10:00 Laboratory Results Laboratory Tests 02/11/25 06:16 Chemistry Test 02/11/25 06:16 Albumin 4.6 g/dL (3.2-4.8) Calcium Level 9.8 mg/dL (8.7-10.4) Magnesium Level 2.1 mg/dL (1.6-2.6) Total Protein 7.1 g/dL (5.7-8.2) LFT Test 02/11/25 06:16 Alanine Aminotransferase (ALT) 43 U/L (7-40) H Alkaline Phosphatase 50 U/L (46-116) Aspartate Amino Transferase (AST) 24 U/L (13-40) Total Bilirubin 0.7 mg/dL (0.2-1.0) Urinalysis Test 02/09/25 12:00 Urine Color Light-yellow (Yellow) Urine Clarity Clear (Clear) Urine pH 5.5 (5.0-9.0) Urine Specific [place] 1.021 (1.001-1.035) Urine Protein Negative (Negative) Urine Ketones Negative (Negative) Urine Blood Negative /uL (Negative) Urine Nitrite Negative (Negative) Urine Bilirubin Negative (Negative) Urine Urobilinogen Normal mg/dL (Negative) Urine Leukocyte Esterase 1+ /uL (Negative) Urine RBC <1 /hpf (0 - 4) Urine Microscopic WBC 4 /HPF (0-5) Urine Squamous Epithelial Cells Few /hpf (<5) Urine Calcium Oxalate Crystals Few (None Seen) Urine Bacteria None seen /hpf (None Seen) Urine Glucose Normal mg/dL (Normal) Microbiology Microbiology Date/Time Source Procedure Growth Status 02/10/25 11:30 Chest Gram Stain Pending Resulted 02/10/25 11:30 Chest Wound Culture - Preliminary Resulted 02/09/25 11:54 Blood Blood Culture - Preliminary NO GROWTH AFTER 48 HOURS OF INCUBATION. Resulted Assessment/Plan Assessment/Plan Port-A-Cath site infection, rule out abscess Status post removal of the Port-A-Cath catheter 4 days ago Left breast cancer status post chemotherapy, finished Mixed hyperlipidemia GERD Hypothyroidism Rule out sepsis The patient denies diabetes or hypertension Plan Wound culture done and sent to the lab Continue IV antibiotics Rocephin and vancomycin Blood culture is pending Surgical consult Resume the home medications Full code Advance directives discussed for 21 minutes 02/11/25: IV antibiotics Culture pending Surgical consult appreciated Plan discussed with: Patient Date of Service: Feb 11, 2025 Billing Provider: VIJI GRACE MD Common Visit Codes: [id number] INP/OBS CARE(HIGH) VIJI GRACE MD Feb 11, 2025 20:08
[2025-02-11] MEDS: VITAMIN D PO SCH (20:15)
[2025-02-11] MEDS: OYSTER SHELL CALCIUM PO SCH (20:15)
[2025-02-12] VITALS (7 sets, daily range): BP systolic 95–114; BP diastolic 49–72; PULSE 71–91; RESP 14–18; TEMP 97.7–98.4; O2SAT 95–100
[2025-02-12] MEDS ORDERED: OYSTER SHELL PO SCH (10:00)
[2025-02-12] MEDS ORDERED: VITAMIN D PO SCH (10:00)
--- NOTE | 2025-02-12 10:41 | DVHPN2 ---
Subjective Still with purulent discharge from the Port-A-Cath opening Culture is pending Changes from previous H/P or p: Changes Eyes: No Pain, No Vision change, No Conjunctivae inflammation, No Eyelid inflammation, No Other, No Redness ENT: No Ear pain, No Ear discharge, No Nose pain, No Nose discharge, No Nose congestion, No Mouth pain, No Mouth swelling, No Throat pain, No Throat swelling, No Other Cardiovascular: No Chest Pain, No Palpitations, No Orthopnea, No Paroxysmal Noc. Dyspnea, No Edema, No Lt Headedness, No Other Respiratory: No Cough, No Dry, No Shortness of breath, No SOB with excertion, No Wheezing, No Hemoptysis, No Pleuritic Pain, No Sputum, No Other Gastrointestinal: No Nausea, No Vomiting, No Abdominal Pain, No Diarrhea, No Constipation, No Melena, No Hematochezia, No Other Genitourinary: No Dysuria, No Frequency, No Incontinence, No Hematuria, No Retention, No Other Musculoskeletal: other (right chest pain at site of port-a-cath removal); No neck pain, No shoulder pain, No arm pain, No back pain, No hand pain, No leg pain, No foot pain Skin: No Rash, No Lesions, No Jaundice, No Bruising; Other (redness, and warmth to right chest port-a-cath removal site) Objective Vitals Vital Signs Date Time Temp Pulse Resp B/P (MAP) Pulse Ox O2 Delivery O2 Flow Rate FiO2 02/12/25 09:00 98.1 74 16 108/69 (82) 95 98.1 02/12/25 08:00 Room Air* 0 21 Intake/Output Intake and Output 02/12/25 07:00 Intake Total 1520 ml Balance 1520 ml Intake Oral 1320 ml IV Total 200 ml # Voids 4 # Bowel Movements 2 General Appearance: Alert, Oriented X3, Cooperative, No acute distress Lungs: Clear to auscultation, Normal air movement Cardiovascular: Regular rate, Normal S1, Normal S2 Abdomen: Normal bowel sounds, Soft, No tenderness Extremities: No edema Medications Current Medications Medications Dose Ordered Sig/Snow Route Start Time Stop Time Status Last Admin Dose Admin Sodium Chloride 10 ml Q8HR IV 02/09/25 22:00 02/12/25 06:16 10 ML Acetaminophen/ Hydrocodone Bitart 1 tab Q4HP PRN PO 02/09/25 16:45 02/11/25 01:31 1 TAB Ondansetron HCl 4 mg Q4HP PRN IV 02/09/25 16:45 Docusate Sodium 100 mg BIDPRN PRN PO 02/09/25 16:45 Acetaminophen 650 mg Q6HP PRN PO 02/09/25 16:45 02/11/25 17:53 650 MG Nitroglycerin 0.4 mg Q5MINP PRN SL 02/09/25 16:45 Morphine Sulfate 2 mg Q30M PRN IV 02/09/25 16:45 Dextrose 50 ml UD PRN IV 02/09/25 16:45 Vancomycin HCl 0 ml @ 0 mls/hr UD IV 02/09/25 16:45 Ceftriaxone Sodium 50 ml @ 100 mls/hr DAILY@09 IV 02/10/25 09:00 02/12/25 08:57 100 MLS/HR Levothyroxine Sodium 112 mcg QAM PO 02/10/25 07:00 02/12/25 06:16 112 MCG Patient Own Medication 1,500 mg BID PO 02/09/25 22:00 02/12/25 09:35 1,500 MG Atorvastatin Calcium 40 mg HS PO 02/09/25 22:00 02/11/25 21:30 40 MG Vancomycin HCl 200 ml @ 200 mls/hr Q12H IV 02/10/25 10:00 02/12/25 10:04 200 MLS/HR Pantoprazole Sodium 40 mg DAILY PO 02/10/25 18:00 02/12/25 08:57 40 MG Patient Own Medication 500 mg DAILY PO 02/11/25 20:15 02/11/25 20:15 500 MG Laboratory Results Laboratory Tests 02/11/25 06:16 Urinalysis Test 02/09/25 12:00 Urine Color Light-yellow (Yellow) Urine Clarity Clear (Clear) Urine pH 5.5 (5.0-9.0) Urine Specific [place] 1.021 (1.001-1.035) Urine Protein Negative (Negative) Urine Ketones Negative (Negative) Urine Blood Negative /uL (Negative) Urine Nitrite Negative (Negative) Urine Bilirubin Negative (Negative) Urine Urobilinogen Normal mg/dL (Negative) Urine Leukocyte Esterase 1+ /uL (Negative) Urine RBC <1 /hpf (0 - 4) Urine Microscopic WBC 4 /HPF (0-5) Urine Squamous Epithelial Cells Few /hpf (<5) Urine Calcium Oxalate Crystals Few (None Seen) Urine Bacteria None seen /hpf (None Seen) Urine Glucose Normal mg/dL (Normal) Microbiology Microbiology Date/Time Source Procedure Growth Status 02/10/25 11:30 Chest Gram Stain Pending Resulted 02/10/25 11:30 Chest Wound Culture - Preliminary Resulted 02/09/25 11:54 Blood Blood Culture - Preliminary NO GROWTH AFTER 48 HOURS OF INCUBATION. Resulted Assessment/Plan Assessment/Plan Port-A-Cath site infection, rule out abscess Status post removal of the Port-A-Cath catheter 4 days ago Left breast cancer status post chemotherapy, finished Mixed hyperlipidemia GERD Hypothyroidism Rule out sepsis The patient denies diabetes or hypertension Plan Wound culture done and sent to the lab Continue IV antibiotics Rocephin and vancomycin Blood culture is pending Surgical consult Resume the home medications Full code Advance directives discussed for 21 minutes 02/11/25: IV antibiotics Culture pending Surgical consult appreciated 02/12/2025: Continue IV antibiotics Rocephin and vancomycin pending the culture The wound is still draining purulent discharge Blood cultures negative Monitor closely The rest of the management will depend on the hospital course Plan discussed with: Patient Date of Service: Feb 12, 2025 Billing Provider: VIJI GRACE MD Common Visit Codes: [id number] INP/OBS CARE(HIGH) VIJI GRACE MD Feb 12, 2025 10:41
[2025-02-13] VITALS (7 sets, daily range): BP systolic 96–131; BP diastolic 49–86; PULSE 75–87; RESP 14–18; TEMP 96.8–98.5; O2SAT 97–99
--- NOTE | 2025-02-13 15:17 | DVHPN2 ---
Subjective The wound is still draining purulent discharge but it is less Changes from previous H/P or p: Changes Eyes: No Pain, No Vision change, No Conjunctivae inflammation, No Eyelid inflammation, No Other, No Redness ENT: No Ear pain, No Ear discharge, No Nose pain, No Nose discharge, No Nose congestion, No Mouth pain, No Mouth swelling, No Throat pain, No Throat swelling, No Other Cardiovascular: No Chest Pain, No Palpitations, No Orthopnea, No Paroxysmal Noc. Dyspnea, No Edema, No Lt Headedness, No Other Respiratory: No Cough, No Dry, No Shortness of breath, No SOB with excertion, No Wheezing, No Hemoptysis, No Pleuritic Pain, No Sputum, No Other Gastrointestinal: No Nausea, No Vomiting, No Abdominal Pain, No Diarrhea, No Constipation, No Melena, No Hematochezia, No Other Genitourinary: No Dysuria, No Frequency, No Incontinence, No Hematuria, No Retention, No Other Musculoskeletal: other (right chest pain at site of port-a-cath removal); No neck pain, No shoulder pain, No arm pain, No back pain, No hand pain, No leg pain, No foot pain Skin: No Rash, No Lesions, No Jaundice, No Bruising; Other (redness, and warmth to right chest port-a-cath removal site) Objective Vitals Vital Signs Date Time Temp Pulse Resp B/P (MAP) Pulse Ox O2 Delivery O2 Flow Rate FiO2 02/13/25 13:00 97.6 75 16 124/80 (95) 98 97.6 02/13/25 08:00 Room Air* 0 21 Intake/Output Intake and Output 02/13/25 07:00 Intake Total 1500 ml Balance 1500 ml Intake Oral 1050 ml IV Total 450 ml # Voids 9 # Bowel Movements 1 General Appearance: Alert, Oriented X3, Cooperative, No acute distress Lungs: Clear to auscultation, Normal air movement Cardiovascular: Regular rate, Normal S1, Normal S2 Abdomen: Normal bowel sounds, Soft, No tenderness Extremities: No edema Medications Current Medications Medications Dose Ordered Sig/Snow Route Start Time Stop Time Status Last Admin Dose Admin Sodium Chloride 10 ml Q8HR IV 02/09/25 22:00 02/13/25 12:06 10 ML Acetaminophen/ Hydrocodone Bitart 1 tab Q4HP PRN PO 02/09/25 16:45 02/11/25 01:31 1 TAB Ondansetron HCl 4 mg Q4HP PRN IV 02/09/25 16:45 Docusate Sodium 100 mg BIDPRN PRN PO 02/09/25 16:45 Acetaminophen 650 mg Q6HP PRN PO 02/09/25 16:45 02/13/25 08:28 650 MG Nitroglycerin 0.4 mg Q5MINP PRN SL 02/09/25 16:45 Morphine Sulfate 2 mg Q30M PRN IV 02/09/25 16:45 Dextrose 50 ml UD PRN IV 02/09/25 16:45 Vancomycin HCl 0 ml @ 0 mls/hr UD IV 02/09/25 16:45 Ceftriaxone Sodium 50 ml @ 100 mls/hr DAILY@09 IV 02/10/25 09:00 02/13/25 09:36 100 MLS/HR Levothyroxine Sodium 112 mcg QAM PO 02/10/25 07:00 02/13/25 06:32 112 MCG Patient Own Medication 1,500 mg BID PO 02/09/25 22:00 02/13/25 09:36 1,500 MG Atorvastatin Calcium 40 mg HS PO 02/09/25 22:00 02/12/25 21:23 40 MG Pantoprazole Sodium 40 mg DAILY PO 02/10/25 18:00 02/13/25 09:36 40 MG Patient Own Medication 500 mg DAILY PO 02/11/25 20:15 02/12/25 13:11 500 MG Vancomycin HCl 250 ml @ 200 mls/hr Q12H IV 02/13/25 22:00 Laboratory Results Laboratory Tests 02/11/25 06:16 02/13/25 09:30 Urinalysis Test 02/09/25 12:00 Urine Color Light-yellow (Yellow) Urine Clarity Clear (Clear) Urine pH 5.5 (5.0-9.0) Urine Specific [place] 1.021 (1.001-1.035) Urine Protein Negative (Negative) Urine Ketones Negative (Negative) Urine Blood Negative /uL (Negative) Urine Nitrite Negative (Negative) Urine Bilirubin Negative (Negative) Urine Urobilinogen Normal mg/dL (Negative) Urine Leukocyte Esterase 1+ /uL (Negative) Urine RBC <1 /hpf (0 - 4) Urine Microscopic WBC 4 /HPF (0-5) Urine Squamous Epithelial Cells Few /hpf (<5) Urine Calcium Oxalate Crystals Few (None Seen) Urine Bacteria None seen /hpf (None Seen) Urine Glucose Normal mg/dL (Normal) Microbiology Microbiology Date/Time Source Procedure Growth Status 02/10/25 11:30 Chest Gram Stain Pending Resulted 02/10/25 11:30 Chest Wound Culture - Preliminary Resulted 02/09/25 11:54 Blood Blood Culture - Preliminary NO GROWTH AFTER 72 HOURS OF INCUBATION. Resulted Assessment/Plan Assessment/Plan Port-A-Cath site infection, rule out abscess Status post removal of the Port-A-Cath catheter 4 days ago Left breast cancer status post chemotherapy, finished Mixed hyperlipidemia GERD Hypothyroidism Rule out sepsis The patient denies diabetes or hypertension Plan Wound culture done and sent to the lab Continue IV antibiotics Rocephin and vancomycin Blood culture is pending Surgical consult Resume the home medications Full code Advance directives discussed for 21 minutes 02/11/25: IV antibiotics Culture pending Surgical consult appreciated 02/12/2025: Continue IV antibiotics Rocephin and vancomycin pending the culture The wound is still draining purulent discharge Blood cultures negative Monitor closely The rest of the management will depend on the hospital course 02/13/2025: Continue current management with the IV antibiotics Wound culture is still pending Monitor closely Plan discussed with: Patient Date of Service: Feb 13, 2025 Billing Provider: VIJI GRACE MD Common Visit Codes: [id number] INP/OBS CARE(HIGH) VIJI GRACE MD Feb 13, 2025 15:16
[2025-02-13] MEDS: VANCOMYCIN 1.25GM/250ML 250 ML IV SCH (21:21)
[2025-02-14 01:00] VITALS: BP 124/74; PULSE 80; RESP 18; TEMP 96.9; O2SAT 98
[2025-02-14 05:00] VITALS: BP 121/69; PULSE 78; RESP 18; TEMP 97.7; O2SAT 98
[2025-02-14 06:15] LABS: Basophils # (auto) 0 10 ^3/uL (0-0.2); Basophils % (auto) 0.2 % (0.0-2.0); Eosinophils # (auto) 0 10 ^3/uL (0-0.8); Eosinophils % (auto) 1.8 % (0.0-7.0); Hematocrit 34.3 % (36.0-46.0); Lymphocytes # (auto) 0.6 10 ^3/uL (0.4-5.4); Lymphocytes % (auto) 27.4 % (10.0-50.0); Mean Corpuscular Hemoglobin 33.6 pg (28.0-32.0); Mean Corpuscular Hgb Conc. 34.9 g/dL (32.0-36.0); Mean Corpuscular Volume 96.4 fL (80.0-100.0); Monocytes # (auto) 0.3 10 ^3/uL (0-1.3); Monocytes % (auto) 14.9 % (0.0-12.0); Neutrophils # (auto) 1.3 10 ^3/uL (1.6-8.6); Neutrophils % (auto) 55.7 % (37.0-80.0); Nucleated Red Blood Cells % 0.2 %; Platelet Count (auto) 120 10^3/uL (140-450); Red Blood Cells 3.56 10^6/uL (4.0-5.20); Red Cell Distribution Width 19.8 % (11.8-14.3); White Blood Cell 2.3 10^3/uL (4.4-10.8)
[2025-02-14 09:00] VITALS: BP 134/83; PULSE 85; RESP 17; O2SAT 98
[2025-02-14] MEDS ORDERED: DOXY1CAP57 PO (09:45)
--- NOTE | 2025-02-14 09:46 | DVHPN2 ---
Progress Note - Surgical Date Seen: Feb 14, 2025 Post op day Post op day: 3 Subjective Patient reports: Feels better Review of Systems: HEENT:Normal, CVS:Normal, RESPIRATORY:Normal, GI:Normal, :Normal, MSK:Normal, NEURO:Normal Objective Vital signs Vital Sign Date Time Temp Pulse Resp B/P (MAP) Pulse Ox O2 Delivery O2 Flow Rate FiO2 02/14/25 05:00 97.7 78 18 121/69 (86) 98 97.7 02/13/25 20:00 Room Air* 0 21 Total Intake and Output 02/13/25 02/13/25 02/14/25 15:00 23:00 07:00 Intake Total 250 ml 840 ml 600 ml Output Total 4 ml Balance 250 ml 840 ml 596 ml Medications Current Medications Medications Dose Ordered Sig/Snow Route Start Time Stop Time Status Last Admin Dose Admin Sodium Chloride 10 ml Q8HR IV 02/09/25 22:00 02/14/25 06:01 10 ML Acetaminophen/ Hydrocodone Bitart 1 tab Q4HP PRN PO 02/09/25 16:45 02/11/25 01:31 1 TAB Ondansetron HCl 4 mg Q4HP PRN IV 02/09/25 16:45 Docusate Sodium 100 mg BIDPRN PRN PO 02/09/25 16:45 Acetaminophen 650 mg Q6HP PRN PO 02/09/25 16:45 02/13/25 08:28 650 MG Nitroglycerin 0.4 mg Q5MINP PRN SL 02/09/25 16:45 Morphine Sulfate 2 mg Q30M PRN IV 02/09/25 16:45 Dextrose 50 ml UD PRN IV 02/09/25 16:45 Vancomycin HCl 0 ml @ 0 mls/hr UD IV 02/09/25 16:45 Ceftriaxone Sodium 50 ml @ 100 mls/hr DAILY@09 IV 02/10/25 09:00 02/14/25 08:43 100 MLS/HR Levothyroxine Sodium 112 mcg QAM PO 02/10/25 07:00 02/14/25 06:01 112 MCG Patient Own Medication 1,500 mg BID PO 02/09/25 22:00 02/14/25 08:46 1,500 MG Atorvastatin Calcium 40 mg HS PO 02/09/25 22:00 02/13/25 21:21 40 MG Pantoprazole Sodium 40 mg DAILY PO 02/10/25 18:00 02/13/25 09:36 40 MG Patient Own Medication 500 mg DAILY PO 02/11/25 20:15 02/14/25 08:47 500 MG Vancomycin HCl 250 ml @ 200 mls/hr Q12H IV 02/13/25 22:00 02/13/25 21:21 200 MLS/HR Laboratory Laboratory Tests 02/14/25 05:18 02/11/25 06:16 Test 02/11/25 06:16 Range/Units Serum Glucose 119 H 74-106 mg/dL Microbiology Date/Time Source Procedure Growth Status 02/10/25 11:30 Chest Gram Stain Pending Resulted 02/10/25 11:30 Chest Wound Culture - Preliminary Resulted 02/09/25 11:54 Blood Blood Culture - Preliminary NO GROWTH AFTER 72 HOURS OF INCUBATION. Resulted Examination: GENERAL:Normal, HEENT:Normal, NECK:Normal, LUNGS:Normal, CVS:Normal, ABDOMEN:Normal, MSK:Normal, SKIN:Abnormal (small open wound at site of portacath explantation), NEURO:Normal, :Normal Problem List/Assessment/Plan Problems: (1) Infection due to Port-A-Cath Assessment and Plan wound from infected portacath explantation is healing. use hydrogen peroxide saturfated q tip twice a day into the wound till its closed, ok to discharge patient home Plan discussed with Plan discussed with: Patient Visit Coding Surgery Date of Service if different f: Feb 14, 2025 Billing Provider: HEIDI NAVA MD Surgery Visit Codes: [id number] INP/OBS CARE(HIGH) HEIDI NAVA MD Feb 14, 2025 09:46
[2025-02-14 10:36] VITALS: BP 134/83; PULSE 78; RESP 18; TEMP 97.7; O2SAT 98
--- NOTE | 2025-02-14 14:10 | DVHDS2 ---
Discharge Summary Date of Admission Feb 09, 2025 at 16:38 Date of Discharge: Feb 14, 2025 Labs/Diagnostic Data: Laboratory Results Test 02/14/25 05:18 02/13/25 09:30 02/11/25 06:16 02/10/25 12:01 White Blood Count 2.3 10^3/uL (4.4-10.8) Red Blood Count 3.56 10^6/uL (4.0-5.20) Hemoglobin 12.0 g/dL (12.2-16.2) Hematocrit 34.3 % (36.0-46.0) Mean Corpuscular Volume 96.4 fL (80.0-100.0) Mean Corpuscular Hemoglobin 33.6 pg (28.0-32.0) Mean Corpuscular Hemoglobin Concent 34.9 g/dL (32.0-36.0) Red Cell Distribution Width 19.8 % (11.8-14.3) Platelet Count 120 10^3/uL (140-450) Mean Platelet Volume 7.3 fL (6.9-10.8) Neutrophils (%) (Auto) 55.7 % (37.0-80.0) Lymphocytes (%) (Auto) 27.4 % (10.0-50.0) Monocytes (%) (Auto) 14.9 % (0.0-12.0) Eosinophils (%) (Auto) 1.8 % (0.0-7.0) Basophils (%) (Auto) 0.2 % (0.0-2.0) Neutrophils # (Auto) 1.3 10 ^3/uL (1.6-8.6) Lymphocytes # (Auto) 0.6 10 ^3/uL (0.4-5.4) Monocytes # (Auto) 0.3 10 ^3/uL (0-1.3) Eosinophils # (Auto) 0 10 ^3/uL (0-0.8) Basophils # (Auto) 0 10 ^3/uL (0-0.2) Nucleated Red Blood Cells 0.2 % Creatinine 0.65 mg/dL (0.550-1.02) Glomerular Filtration Rate Calc 107 mL/min (>90) Vancomycin Level Trough 9.5 ug/mL (5-10) Sodium Level 140 mmol/L (136-145) Potassium Level 3.9 mmol/L (3.5-5.1) Chloride Level 104 mmol/L (98-107) Carbon Dioxide Level 25 mmol/L (20-31) Anion Gap 11 (5-15) Blood Urea Nitrogen 13 mg/dL (9-23) BUN/Creatinine Ratio 23.2 (10.0-20.0) Serum Glucose 119 mg/dL (74-106) Calcium Level 9.8 mg/dL (8.7-10.4) Magnesium Level 2.1 mg/dL (1.6-2.6) Total Bilirubin 0.7 mg/dL (0.2-1.0) Aspartate Amino Transferase (AST) 24 U/L (13-40) Alanine Aminotransferase (ALT) 43 U/L (7-40) Alkaline Phosphatase 50 U/L (46-116) Total Protein 7.1 g/dL (5.7-8.2) Albumin 4.6 g/dL (3.2-4.8) POC Glucose 80 mg/dl (70-106) Test 02/10/25 06:14 02/09/25 12:00 02/09/25 11:54 Random Vancomycin Level 6.7 ug/mL (5-10) Urine Color Light-yellow (Yellow) Urine Clarity Clear (Clear) Urine pH 5.5 (5.0-9.0) Urine Specific [place] 1.021 (1.001-1.035) Urine Protein Negative (Negative) Urine Ketones Negative (Negative) Urine Blood Negative /uL (Negative) Urine Nitrite Negative (Negative) Urine Bilirubin Negative (Negative) Urine Urobilinogen Normal mg/dL (Negative) Urine Leukocyte Esterase 1+ /uL (Negative) Urine RBC <1 /hpf (0 - 4) Urine Microscopic WBC 4 /HPF (0-5) Urine Squamous Epithelial Cells Few /hpf (<5) Urine Calcium Oxalate Crystals Few (None Seen) Urine Bacteria None seen /hpf (None Seen) Urine Glucose Normal mg/dL (Normal) Lactic Acid Level 1.3 mmol/L (0.4-2.0) Other Laboratory Tests 02/14/25 05:18 02/11/25 06:16 Brief Hx & Hospital Course: Final diagnoses: Port-A-Cath site infection, rule out abscess Status post removal of the Port-A-Cath catheter 4 days ago Left breast cancer status post chemotherapy, finished Mixed hyperlipidemia GERD Hypothyroidism Rule out sepsis The patient denies diabetes or hypertension 49-year-old female with a history of breast cancer came with an infection of the Port-A-Cath site on her right chest that she had a catheter there and it was removed few days before she came here, after removal of the catheter she has started having swelling at the site with the pain She came here and she was having some discharge from the wound We consulted surgery and the wound was explored and widened and continued to drain We culture the secretions of the purulent discharge but it was negative She was given Rocephin IV during the hospitalization and overall she the okay No fever The drainage has been very minimal now for the last 24 hours and therefore she will be discharged home on doxycycline for 7 days and follow up with the primary care physician as soon as possible and resume other home medications Condition at Discharge: Stable Final Diagnosis/Problems List Port-A-Cath site infection, rule out abscess Status post removal of the Port-A-Cath catheter 4 days ago Left breast cancer status post chemotherapy, finished Mixed hyperlipidemia GERD Hypothyroidism Rule out sepsis The patient denies diabetes or hypertension Discharge Disposition: Home SNF Discharge Will this Physician continue t: No Discharge Instruct/Medications Diet: Regular Activity: No Restrictions, As Tolerated Follow Up/Referral: PCP [facility] Medications: Doxycycline 100 mg bid x 7 days Discharge Statement: "Patient was advised to return to the ER or call 911 if any headaches, dizziness, shortness of breath, chest pain, abdominal pain, bleeding, fevers, or worsening of medical condition. Patient was counseled about treatment plan, medications, possible side effects, patientverbalized understanding. All questions were answered to the best of my ability. This discharge took greater then 30 minutes in planning, reviewing documentation, counseling the patient, and discussing with other team members." ASSESSMENT ASSESSMENT Assessment Port-A-Cath site infection, rule out abscess Status post removal of the Port-A-Cath catheter 4 days ago Left breast cancer status post chemotherapy, finished Mixed hyperlipidemia GERD Hypothyroidism Rule out sepsis The patient denies diabetes or hypertension Date of Service: Feb 14, 2025 Billing Provider: VIJI GRACE MD Common Visit Codes: [id number] DISCH DAY >30min VIJI GRACE MD Feb 14, 2025 14:10
== END 2025-02-14 12:26 | disposition home or self-care (01) | DRG 721 ==
LOC: ER 09:59 → EDBD 09:59 → OVERFLOW 16:38 → WEST WING 22:00 → CENTRAL 02-13 09:57
PROVIDERS: ADMIT Internal Medicine Geriatric Medicine; ATTEND Internal Medicine Geriatric Medicine
PROC: 0H95XZZ Drainage of Chest Skin, External Approach (ICD-10-PCS; principal; 2025-02-10)
DX: T80.212A Local infection due to central venous catheter, initial encounter (principal); A41.9 Sepsis, unspecified organism; C50.912 Malignant neoplasm of unspecified site of left female breast; T81.41XA Infection following a procedure, superficial incisional surgical site, initial encounter; K21.9 Gastro-esophageal reflux disease without esophagitis; E03.9 Hypothyroidism, unspecified; E78.00 Pure hypercholesterolemia, unspecified; E11.9 Type 2 diabetes mellitus without complications; Y83.8 Other surgical procedures as the cause of abnormal reaction of the patient, or of later complication, without mention of misadventure at the time of the procedure; Z85.3 Personal history of malignant neoplasm of breast; Z90.12 Acquired absence of left breast and nipple; Z90.49 Acquired absence of other specified parts of digestive tract; Z79.899 Other long term (current) drug therapy; Y92.89 Other specified places as the place of occurrence of the external cause; Z92.21 Personal history of antineoplastic chemotherapy
CPT/HCPCS: 20610; 36415; 71045; 80048; 80053; 80202; 81001; 82565; 82962; 83605; 83735; 85025; 87040; 87205; 93005; 99291; 99292; G0378; J1815